=== PATIENT | female | born 1955 | race Caucasian/White ===

== ENCOUNTER 2020-05-18 12:11 | Outpatient (REF) | payer MEDICAID, SELFPAY ==
--- NOTE | 2020-05-18 | MM_ITS ---
EXAMINATION: MM DIAGNOSTIC DIGITAL BREAST TOMOSYNTHESIS, BILATERAL CLINICAL INFORMATION: Probable benign nodular density anterior medial left breast for follow-up. Due for yearly. The lifetime risk of breast cancer based on the Tyrer-Cuzick Model is 4%. COMPARISON: Mammography: 04/03/2019, 09/13/2018, 03/09/2018, 07/06/2016 TECHNIQUE: Digital breast tomosynthesis is performed in both the craniocaudal and mediolateral oblique views along with computer-aided detection (CAD). Synthesized 2D images are generated from the tomosynthesis. FINDINGS: There are scattered areas of fibroglandular density (ACR BI-RADS breast composition Category b). There are no significant masses, abnormal calcifications, or other abnormalities. Small circumscribed nodule anterior medial left breast on CC view is stable since initial visualization 03/09/2018. It is now considered benign. There is no developing density or interval architectural abnormality. Benign heavily calcified nodule posterior upper left breast is stable. Results are provided to the patient at time of visit by the technologist. MM/MM tomosynthesis diagnostic BI IMPRESSION: 1. No mammographic evidence of malignancy. 2. Small nodule anterior medial left breast stable since 2018, now considered benign. ASSESSMENT: BI-RADS 2: Benign RECOMMENDATION: Routine annual mammography screening. This patient's information was entered into a reminder system with a target due date for their next mammogram.
== END 2020-05-18 12:12 | disposition home or self-care (01) ==
LOC: HO.MAMMO 12:11
PROVIDERS: PCP Internal Medicine; Visit Provider Internal Medicine
DX: Z12.31 Encounter for screening mammogram for malignant neoplasm of breast (principal); N63.20 Unspecified lump in the left breast, unspecified quadrant
CPT/HCPCS: 77062; 77066

== ENCOUNTER 2020-06-09 17:53 | Emergency (ER) | payer MEDICAID, SELFPAY ==
[2020-06-09 18:03] VITALS: BP 142/55; PULSE 104; RESP 16; TEMP 36.1; O2SAT 98; BMI 36.0
--- NOTE | 2020-06-09 18:36 | XR_ITS ---
EXAMINATION: XR SHOULDER, RIGHT CLINICAL INFORMATION: Shoulder pain COMPARISON: None TECHNIQUE: AP external rotation, Grashey, scapular Y, and axillary views of the right shoulder. FINDINGS: Visualized portion of the proximal right humerus demonstrate no fracture. Humeral head demonstrates good articulation with the glenoid fossa. There is a prominent osteophyte along the inferolateral right humeral head. Calcifications adjacent to the greater tuberosity suggest calcific tendinitis. There are mild degenerative changes of the right acromioclavicular joint. Visualized right-sided ribs and lung parenchyma are unremarkable. XR/XR shoulder RT min 2V IMPRESSION: Degenerative changes of the right shoulder with calcific tendinitis. No fracture or dislocation.
--- NOTE | 2020-06-09 18:48 | ED_ITS ---
HPI - Extremity Problem General Chief complaint: Extremity Problem Stated complaint: Arm pain No injury Time Seen by Provider: 06/09/20 18:36 Source: patient Mode of arrival: ambulatory Limitations: language barrier History of Present Illness HPI Narrative: 65 y/o female with history of HTN, DM, asthma, hx DVT, asthma, depression, peripheral neuropathy, hx bilateral carpal tunnel release in the past presenting with 1 month of RUE pain. She states it starts in her right lateral shoulder and upper arm and radiates down to her elbow and hand. She is right hand dominant. She sleeps on her right side and has been unable to sleep well due to the pain. She has been taking Tylenol without improvement. She denies injury or trauma. She denies weakness but admits to limited ROM due to pain. MD Complaint: extremity pain Onset (ago): week(s) (4-6) Pain Consistency: constant Location: right and upper extremity Severity scale (1-10): 8 Quality: burning and aching Radiation: distal Relieving factors: medication Exacerbating factors: range of motion and palpation Associated symptoms: denies other symptoms Related Data Previous Rx's Medication Instructions Recorded oxycodone 5 mg PO Q4H PRN #10 tab 06/09/20 prednisone 40 mg PO DAILY #10 tab 06/09/20 Allergies Allergy/AdvReac Type Severity Reaction Status Date / Time levofloxacin [From LEVAQUIN] Allergy Mild unknown Unverified 03/12/20 19:12 Sulfa (Sulfonamide Allergy Unknown UNKNOWN Unverified 03/12/20 19:12 Antibiotics) [SULFA (SULFONAMIDE ANTIBIOTICS)] sulfamethoxazole Allergy Unknown UNKNOWN Unverified 03/12/20 19:12 [From SEPTRA] trimethoprim [From SEPTRA] Allergy Unknown UNKNOWN Unverified 03/12/20 19:12 Review of Systems Review of Systems: Constitutional: No Fever, No Chills Cardiovascular: No Chest Pain, No SOB, No Orthopnea, No Edema Respiratory: No Cough, No Sputum, Gastrointestinal: No Nausea, No Vomiting Musculoskeletal: + joint pain, No Myalgias Skin: No Skin Lesions, No rash Neuro: No Weakness, No Numbness Heme/Lymph: No Bruising, No Lymphadenopathy PMFSH Past Medical History Attestation statement: The following information was validated with the patient. Medical History Asthma Diabetes HTN (hypertension) Neuropathy Social History Social History Advance Directives: No Advance Directives Information Provided: Yes Physical Exam Vital Signs: Vital Signs: Last Vital Signs Temp 98 F 06/09/20 19:32 Pulse 104 H 06/09/20 19:32 Resp 16 06/09/20 19:32 BP 138/66 06/09/20 19:32 Pulse Ox 100 06/09/20 19:32 Body Mass Index 36.0 Appearance: Alert. Oriented X3. No acute distress. HEENT: normal inspection CVS: Normal heart rate and rhythm. Pulses normal. Respiratory: No respiratory distress. Skin: Skin warm and dry. Normal skin color. Normal skin turgor. No rashes. Extremities: right proximal humerus tenderness with limited active shoulder ROM due to pain, passive ROM possible but reports pain. normal hand grasp, limited shoulder abduction due to pain. no deformity, no skin changes or swelling, normal radial pulse, warm and well perfused. No scapular tenderness. Neuro: Oriented X 3. No motor deficit. No sensory deficit. Course Course Course Narrative: 65 y/o female with non-traumatic right shoulder pain x4-6 weeks. Feels different from her usual LE neuropathy. XR pending. Suspect tendonitis. Reevaluation(s) Reevaluation #1: XR shows degenerative changes of the right shoulder with calcific tendonitis. No fx or dislocation. Will treat with sling for immobilization, prednisone and pain meds PRN. Refer to Ortho. Patient agrees with plan. Stable for d/c. Critical Care Time Critical Care Time Critical Care Time: No Discharge Plan Discharge Clinical Impression: Calcific tendonitis Patient Disposition: Home, Self-Care Instructions: Calcific Tendinitis (ED) Additional Instructions: X-ray today showed calcific tendonitis. Treatment consists of rest and anti-inflammatory mediations. Recommend resting your arm in a sling. Take the prescribed steroids for inflammation - take the 1st dose tomorrow because you were given a dose here in the ER. Take the prescribed pain medications as needed. Do not drive after taking this medication. Follow up with Orthopedics if no improvement in pain. Follow up with your doctor this week. If pain worsens or changes come back to the ER for further evaluation. Prescriptions: New oxycodone 5 mg tablet 5 mg PO Q4H PRN (Reason: pain) Qty: 10 RF: 0 prednisone 20 mg tablet 40 mg PO DAILY Qty: 10 RF: 0 Referrals: Luis Wray MD [Physician] - 3 days (calcific tendonitis) Interventions: ED Discharge Assessment Last Done: 06/09/20 20:27 Discharge Date/Time: 06/09/20 20:30 Print Language: Albanian
[2020-06-09] MEDS: Acetaminophen 325 MG TABLET 975 MG PO (19:16)
[2020-06-09 19:32] VITALS: BP 138/66; PULSE 104; RESP 16; TEMP 36.6; O2SAT 100
[2020-06-09] MEDS: predniSONE 20 MG TABLET 40 MG PO (20:22)
[2020-06-09] MEDS: oxyCODONE HCl Immed Release 5 MG TABLET PO (20:23)
[2020-06-09] MEDS: Lidocaine 4 % Patch ADH..PATCH 1 PATCH TRANSDERMA (20:23)
== END 2020-06-09 20:30 | disposition home or self-care (01) ==
PROVIDERS: Emergency Provider Internal Medicine
DX: M75.31 Calcific tendinitis of right shoulder (principal); M25.511 Pain in right shoulder; I10 Essential (primary) hypertension; Z79.899 Other long term (current) drug therapy
CPT/HCPCS: 73030; 99283

== ENCOUNTER 2020-12-29 15:24 | Emergency (ER) | payer MEDICAID, SELFPAY ==
--- NOTE | 2020-12-29 15:29 | ECG_ITS ---
Test Reason : CHEST PAIN Blood Pressure : / mmHG Vent. Rate : 081 BPM Atrial Rate : 081 BPM P-R Int : 128 ms QRS Dur : 088 ms QT Int : 388 ms P-R-T Axes : 049 007 062 degrees QTc Int : 450 ms Normal sinus rhythm Normal ECG When compared with ECG of 06-JAN-2020 12:20, No significant change was found Referred By: Generic ED Physician Electronically Signed By:DARWIN VALDEZ
== END 2020-12-29 18:02 | disposition left against medical advice (07) ==
PROVIDERS: Emergency Provider Emergency Medicine
DX: R00.2 Palpitations (principal)
CPT/HCPCS: 93005; 99281; 99283

== ENCOUNTER 2021-02-03 11:08 | Outpatient (REF) | payer MEDICAID, SELFPAY ==
--- NOTE | ~2021-02-03 | XR_ITS ---
EXAMINATION: XR SHOULDER, LEFT CLINICAL INFORMATION: Left shoulder pain. Concern for frozen shoulder. COMPARISON: Subsequent left shoulder radiographs dated 02/04/2021. TECHNIQUE: AP external rotation, Grashey, scapular Y, and axillary views of the left shoulder. FINDINGS: Small acromioclavicular and glenohumeral marginal osteophytes. Small lateral subacromial spurs. No lytic or blastic osseous lesion. No fracture or dislocation. XR/XR shoulder LT min 2V IMPRESSION: Mild acromioclavicular and glenohumeral osteoarthritis. Lateral subacromial spurring.
== END 2021-02-03 11:09 | disposition home or self-care (01) ==
LOC: HO.XRAY 11:08
PROVIDERS: PCP Nurse Practitioner; Visit Provider Nurse Practitioner
DX: M25.512 Pain in left shoulder (principal)
CPT/HCPCS: 73030

== ENCOUNTER 2021-02-04 12:25 | Emergency (ER) | payer MEDICAID, SELFPAY ==
--- NOTE | ~2021-02-04 | CT_ITS ---
EXAMINATION: CT SOFT TISSUE NECK WITH CONTRAST CLINICAL INFORMATION: Neck pain. Rule out abscess or mastoiditis. COMPARISON: None TECHNIQUE: Following the intravenous administration of 85 mL of Omnipaque 370 contrast, helical imaging was performed in the axial plane with generation of coronal and sagittal reformatted images. This CT examination was performed using dose optimization techniques as appropriate, variously including the following: *Automated exposure control *Adjustment of mA and/or kV according to patient size (this includes techniques or standardized protocols for targeted exams where dose is matched to indication/reason for exam; i.e. extremities or head) *Use of iterative reconstruction technique DLP: 302 mGy-cm FINDINGS: No contour abnormality or pathologic enhancement is seen within the oral cavity, pharyngeal mucosal space, or larynx. No pathologically enlarged cervical lymph nodes are visible. The carotid sheath vasculature opacifies normally with atherosclerotic wall calcifications at left bifurcation. No soft tissue fluid collection seen. The thyroid gland is normal. The airway is normally maintained. The parotid and submandibular glands appear normal. Multilevel cervical spondylosis and facet arthropathy visible. No periapical lucencies seen in the dentition. The visualized orbits are relatively normal with evidence of prior lens extractions bilaterally. The imaged mediastinum is normal. The visualized portions of the lungs demonstrate mild scattered subsegmental atelectatic changes. Linear scarring visible in the left lung apex. The paranasal sinuses, middle ear cavities, and mastoid air cells are aerated. The imaged portions of the brain demonstrate no acute abnormality. CT/CT soft tissue neck w con IMPRESSION: No soft tissue fluid collections or adenopathy. Well aerated middle ear cavities and mastoid air cells. No acute findings.
--- NOTE | ~2021-02-04 | XR_ITS ---
EXAMINATION: XR SHOULDER, LEFT CLINICAL INFORMATION: Left shoulder pain. COMPARISON: Left shoulder radiographs dated 02/03/2021. TECHNIQUE: AP external rotation, Grashey, scapular Y, and axillary views of the left shoulder. FINDINGS: No acute fracture or dislocation. Mild acromioclavicular and glenohumeral joint space narrowing with small marginal osteophytes. Small lateral subacromial spurring. No osseous erosion. No fracture or dislocation. XR/XR shoulder LT min 2V IMPRESSION: Mild acromioclavicular and glenohumeral osteoarthritis. Small lateral subacromial spurs.
[2021-02-04 12:59] VITALS: BP 140/75; PULSE 86; RESP 18; TEMP 37.1; O2SAT 97; BMI 36.6
--- NOTE | 2021-02-04 13:05 | PC.NURSE ---
Pt declined motrin/ tylenol in triage
--- NOTE | 2021-02-04 15:27 | ED_ITS ---
HPI - General Adult General Chief complaint: Extremity Problem Stated complaint: shoulder pain and arm swelling Time Seen by Provider: 02/04/21 15:27 History of Present Illness HPI narrative: 65-year-old female with history of hypertension, diabetes, asthma, DVT, depression, peripheral neuropathy, bilateral carpal tunnel syndrome is here today for complaints of left shoulder, neck, ear pain. Patient denies any injury. She reports that she woke up about a week ago with severe pain. Patient went to PCPs office couple days ago and received IM injection. Medication has not helped her. Patient denies any fevers or chills. Denies any neurological symptoms. Denies rhinitis, dizziness or headache. Related Data Previous Rx's Medication Instructions Recorded oxycodone 5 mg tablet 5 mg PO Q4H PRN #10 tab 06/09/20 prednisone 20 mg tablet 40 mg PO DAILY #10 tab 06/09/20 amoxicillin 875 mg-potassium 1 tab PO BID 7 Days #14 tab 02/04/21 clavulanate 125 mg tablet (Augmentin) cyclobenzaprine 10 mg tablet 10 mg PO BID PRN #10 tab 02/04/21 [id number] 3.5 4 drp OTIC (EAR) LEFT Q8H 10 Days 02/04/21 mg-10,000 unit/mL-1 % ear #10 ml drops,susp oxycodone 5 mg tablet 5 mg PO Q8H PRN #5 tab 02/04/21 Allergies Allergy/AdvReac Type Severity Reaction Status Date / Time levofloxacin [From LEVAQUIN] Allergy Mild unknown Verified 02/04/21 19:25 Sulfa (Sulfonamide Allergy Unknown UNKNOWN Verified 02/04/21 19:25 Antibiotics) [SULFA (SULFONAMIDE ANTIBIOTICS)] sulfamethoxazole Allergy Unknown UNKNOWN Verified 02/04/21 19:25 [From ] trimethoprim [From ] Allergy Unknown UNKNOWN Verified 02/04/21 19:25 Review of Systems Review of Systems: Constitutional : No Weight loss, No Fever, No Chills, No Night Sweats, No Fatigue, No Malaise ENT/Mouth : No Hearing loss, L Ear Pain, No Nasal Congestion, No Sinus Pain, No Hoarseness, No sore throat, No Rhinorrhea, No Swallowing Difficulty, left neck pain and swelling Eyes: No Eye Pain, No Swelling, No Redness, No Foreign Body, No Discharge, No Vision Changes Cardiovascular : No Chest Pain, No SOB, No Dyspnea on Exertion, No Orthopnea, No Edema, No Palpitations Respiratory : No Cough, No Sputum, No Wheezing, No Smoke Exposure, No Dyspnea Gastrointestinal : No Nausea, No Vomiting, No Diarrhea, No Constipation, No abdominal Pain, No Hematochezia, No Melena Genitourinary : no irregular bleeding, No Dysuria, No Urinary Frequency, No Hematuria, No Urinary Incontinence, No Urgency, No Flank Pain, No Urinary Flow Changes, No Hesitancy Musculoskeletal : joint pain, left shoulder pain, Myalgias, No Joint Swelling Skin : No Skin Lesions, No rash Neuro : No Weakness, No Numbness, No Paresthesias, No Loss of Consciousness, No Dizziness, No Headache Psych : No Anxiety/Panic, No Depression, No SI/HI/AH/VH, No Social Issues, Heme/Lymph: No Bruising, No Bleeding,No Lymphadenopathy Endocrine : No Polyuria, No Polydipsia, No Temperature Intolerance Yes all other systems are reviewed and are negative [facility] Past Medical History Medical History Asthma Diabetes HTN (hypertension) Neuropathy Social History Social History Advance Directives: No Advance Directives Information Provided: Yes Patient : No Physical Exam Vital Signs: Vital Signs: Last Vital Signs Temp 98.5 F 02/04/21 18:11 Pulse 81 02/04/21 19:22 Resp 20 02/04/21 19:23 BP 135/75 02/04/21 19:22 Pulse Ox 95 02/04/21 19:22 Body Mass Index 36.6 Const: General: cooperative Orientation/consciousness: patient oriented x3 Limitations: no limitations HENMT: Head: Yes normal to inspection Ears: hearing grossly normal bilaterally, external ears abnormal (Left ear otitis externa), TM's normal bilaterally, mastoid abnormal (Tenderness) and other General nose exam: Normal external nose present Face and sinus: Yes normal facial exam Mouth: Normal oral and palatal mucosa present Throat: Yes posterior oropharynx normal Eyes: General: appearance normal, both eyes and all related structures Eyelids: Yes eyelids normal Conjunctivae: conjunctivae normal Sclerae: sclerae normal Pupils: Equal, round and reactive pupils present Neck: Neck: Yes normal visual inspection, No full ROM, Yes no lymphadenopathy, Yes trachea midline, Yes supple and Yes other (Left neck tenderness and swelling) Thyroid: Thyroid normal Chest: Chest palpation & inspection: normal inspection of the chest Resp: Effort & Inspection: normal respiratory effort and able to speak in complete sentences Auscultation: clear to auscultation bilaterally Cardio: Rate: regular rate Rhythm: regular rhythm Heart sounds: S1 normal heart sound present, S2 normal heart sound present, no gallops, no m urmurs and no rubs Peripheral pulses: Peripheral pulses 2+ throughout GI: Inspection: Yes normal to inspection and No distended Palpation (GI): No hepatosplenomegaly present and No Rebound tenderness present Percussion: Yes normal to percussion Auscultation: normal bowel sounds Back/Spine/Pelvis: Cervical Spine: cervical ROM normal and No cervical muscular tenderness Thoracic/Lumbar Spine: thoracic and lumbar spine normal to inspection Skin: General skin exam: no rashes or lesions noted, elasticity normal and turgor normal Neuro: General: patient oriented x3 Cranial nerves: Yes Equal, round and reactive pupils present Extrem: General: Yes normal to inspection, Yes full ROM and Yes capillary refill normal Psych: Appearance: grossly normal Mental Status: mental status grossly no rmal Speech and movement: Normal speech and movement present Affect: normal affect Attitude: cooperative Thought process: Normal thought process present Insight: Good insight present (Psych) Course Course Course Narrative: 65-year-old female with past medical history of diabetes, hypertension, asthma, DVT, depression, peripheral neuropathy is here today for complaints of left shoulder neck and ear pain. Tenderness to deltoid, trapezius and sternocleidomastoid muscles, otitis externa. Left side of her neck swollen and very tender. Mastoid area tender as well. We will order CT scan soft tissue of the neck. Will do labs to check for kidney function patient is diab etic. Will medicate her with oxycodone and cyclobenzaprine. Reevaluation(s) Reevaluation #1: Patient continues to have left shoulder, neck and ear pain. Patient reports that pain unchanged. Awaiting CT scan results, will order shoulder x-ray. Reevaluation #2: Will order Augmentin and Cortisporin. Patient is diabetic and she has significant redness, pain and pruritus Reevaluation #3: CT scan negative for any acute process. Left shoulder x-ray show osteoarthritis. I will be sending patient home with pain management and antibiotics for otitis externa. Patient is to follow-up with her PCP in 2-3 days. Both patient and her her daughter understand instructions and agreeable to plan of care. They were given the opportunity to ask questions and all questions answered. Medical Decision Making Lab Data Result diagrams: 02/04/21 17:55 Labs: Lab Results 02/04/21 Range/Units 17:55 Sodium 142 (135-145) mmol/L Potassium 4.2 (3.3-5.1) mmol/L Chloride 104 (96-108) mmol/L Carbon Dioxide 23 (22-29) mmol/L Anion Gap 19 (12-20) BUN 23 H (9-16) mg/dL Creatinine 1.00 (0.5-1.4) mg/dL Estim Creat Clear Calc 62.6 Estimated GFR 56 Random Glucose 107 (60-115) mg/dL Calcium 10.2 (8.4-10.2) mg/dL Imaging Data Shoulder x-ray: Radiologist's impression: FINDINGS: No acute fracture or dislocation. Mild acromioclavicular and glenohumeral joint space narrowing with small marginal osteophytes. Small lateral subacromial spurring. No osseous erosion. No fracture or dislocation.? CT scan soft neck tissue: Radiologist's impression: FINDINGS: No contour abnormality or pathologic enhancement is seen within the oral cavity, pharyngeal mucosal space, or larynx. No pathologically enlarged cervical lymph nodes are visible. The carotid sheath vasculature opacifies normally with atherosclerotic wall calcifications at left bifurcation. No soft tissue fluid collection seen. The thyroid gland is normal. The airway is normally maintained. The parotid and submandibular glands appear normal. Multilevel cervical spondylosis and facet arthropathy visible. No periapical lucencies seen in the dentition. The visualized orbits are relatively normal with evidence of prior lens extractions bilaterally. The imaged mediastinum is normal. The visualized portions of the lungs demonstrate mild scattered subsegmental atelectatic changes. Linear scarring visible in the left lung apex. The paranasal sinuses, middle ear cavities, and mastoid air cells are aerated. The imaged portions of the brain demonstrate no acute abnormality. Discharge Plan Discharge Clinical Impression: Muscle spasm of left shoulder area Osteoarthritis Qualifiers: Osteoarthritis location: shoulder Osteoarthritis type: unspecified Laterality: left Qualified Code(s): M19.012 - Primary osteoarthritis, left shoulder Otitis externa Qualifiers: Otitis externa type: unspecified type Chronicity: acute Laterality: left Qualified Code(s): H60.502 - Unspecified acute noninfective otitis externa, left ear Patient Disposition: Home, Self-Care Instructions: Otitis Externa (ED), Osteoarthritis (ED), Muscle Spasm (ED) Additional Instructions: Lo vieron aqu? hoy por marks dolor en el hombro tevin y en el ashley. Marks radiograf?a mostr? que tiene osteoartritis. Marks tomograf?a computarizada no muestra ninguna anomal?a. Usted tiene marks infecci?n y la necesidad de kenan gotas para los o?dos y antibi?ticos. Chrissy un seguimiento con marks atenci?n primaria en 2-3 d?as. Es posible que necesite brandon terapia para marks hombro. Por favor devuelva al departamento de emergencias si lor s?ntomas empeoran o si experimenta alg?n s?ntoma preocupante adicional Prescriptions: New cyclobenzaprine 10 mg tablet 10 mg PO BID PRN (Reason: muscle spasm) Qty: 10 RF: 0 amoxicillin-pot clavulanate [Augmentin] 875-125 mg tablet 1 tab PO BID 7 Days Qty: 14 RF: 0 [id number]-[id number]-[id number] 3.5-10,000-1 mg/mL-unit/mL-% drops,suspension 4 drp otic (ear) left Q8H 10 Days Qty: 10 RF: 0 oxycodone 5 mg tablet 5 mg PO Q8H PRN (Reason: pain) Qty: 5 RF: 0 No Action oxycodone 5 mg tablet 5 mg PO Q4H PRN (Reason: pain) Qty: 10 RF: 0 prednisone 20 mg tablet 40 mg PO DAILY Qty: 10 RF: 0
[2021-02-04] MEDS: oxyCODONE HCl Immed Release 5 MG TABLET PO (16:24)
[2021-02-04] MEDS: Cyclobenzaprine HCl 5 MG TABLET PO (16:24)
--- NOTE | 2021-02-04 16:31 | PC.NURSE ---
PT WAS MEDICATED FOR PAIN AND IV ACCESS WAS GAINED FOR CT SCAN
[2021-02-04 18:11] VITALS: BP 142/90; PULSE 84; RESP 18; TEMP 36.9; O2SAT 97
[2021-02-04 18:22] LABS: Anion Gap 19 (12-20); Blood Urea Nitrogen 23 mg/dL (9-16); Calcium 10.2 mg/dL (8.4-10.2); Carbon Dioxide 23 mmol/L (22-29); Chloride 104 mmol/L (96-108); Creatinine Clr Calc Pharmacy 62.6; Estimated Glomerular Filt Rate 56; Glucose Random 107 mg/dL (60-115); Potassium 4.2 mmol/L (3.3-5.1); Sodium 142 mmol/L (135-145)
[2021-02-04] MEDS: iohexoL 350 MG/ML 100 ML INFUS..BTL 85 ML IV (18:43)
[2021-02-04 19:22] VITALS: BP 135/75; PULSE 81; RESP 20; O2SAT 95
[2021-02-04 19:23] VITALS: RESP 20
[2021-02-04] MEDS: Amoxicillin/Potassium Clav 875 MG TABLET PO (19:24)
[2021-02-04] MEDS: NeoMYCIN/Polymyxin/HC Otic Sol BOTTLE 4 DROP EAR-LEFT (19:24)
== END 2021-02-04 20:18 | disposition home or self-care (01) ==
PROVIDERS: Nurse Practitioner Family; Emergency Provider Emergency Medicine
DX: M62.838 Other muscle spasm (principal); M19.012 Primary osteoarthritis, left shoulder; H60.502 Unspecified acute noninfective otitis externa, left ear; M25.512 Pain in left shoulder; E11.9 Type 2 diabetes mellitus without complications; I10 Essential (primary) hypertension
CPT/HCPCS: 36415; 70491; 73030; 80048; 99284; Q9967

== ENCOUNTER 2021-10-16 11:26 | Emergency (ER) | payer MEDICAID, SELFPAY ==
--- NOTE | ~2021-10-16 | XR_ITS ---
EXAMINATION: XR KNEE, LEFT CLINICAL INFORMATION: Knee pain COMPARISON: None TECHNIQUE: Four views of the left knee. FINDINGS: No fracture or joint effusion. Alignment is anatomic. Joint spaces are well maintained. No abnormal soft tissue calcification. Patellar insertion enthesopathy. XR/XR knee LT 3V IMPRESSION: No evidence of acute osseous abnormality.
[2021-10-16 11:32] VITALS: BP 151/83; PULSE 91; RESP 20; TEMP 36.3; O2SAT 98; BMI 35.6
[2021-10-16 11:51] VITALS: BMI 35.9
[2021-10-16] MEDS: oxyCODONE HCl Immed Release 5 MG TABLET PO (12:59)
[2021-10-16] MEDS: Ketorolac Tromethamine 30 MG/ML VIAL IM (13:00)
--- NOTE | 2021-10-16 14:40 | ED.EXTPRO ---
HPI - Extremity Problem General Chief complaint: Extremity Problem Stated complaint: Hip pain/Leg pain Time Seen by Provider: 10/16/21 12:04 Source: patient Mode of arrival: ambulatory History of Present Illness HPI Narrative: 66-year-old female with a past medical history of asthma, diabetes, hypertension, neuropathy, presenting to the ED complaining left hip pain radiating down LLE x1 week. Denies known injury/trauma or fall, numbness, tingling, weakness, urinary incontinence/retention. Taking Tylenol without relief MD Complaint: extremity pain Onset (ago): week(s) Pain Consistency: constant Related Data Previous Rx's Medication Instructions Recorded oxycodone 5 mg tablet 5 mg PO Q4H PRN #10 tab 06/09/20 prednisone 20 mg tablet 40 mg PO DAILY #10 tab 06/09/20 amoxicillin 875 mg-potassium 1 tab PO BID 7 Days #14 tab 02/04/21 clavulanate 125 mg tablet (Augmentin) cyclobenzaprine 10 mg tablet 10 mg PO BID PRN #10 tab 02/04/21 iamytaff-zxrgakgyb-nlodgzptw 3.5 4 drp OTIC (EAR) LEFT Q8H 10 Days 02/04/21 mg-10,000 unit/mL-1 % ear #10 ml drops,susp oxycodone 5 mg tablet 5 mg PO Q8H PRN #5 tab 02/04/21 acetaminophen 500 mg tablet 500 mg PO Q6H PRN #20 tab 10/16/21 (Tylenol Extra Strength) cyclobenzaprine 5 mg tablet 5 mg PO Q8H PRN 5 Days #14 tab 10/16/21 lidocaine 5 % topical patch 1 patch TOPICAL DAILY PRN #30 ea 10/16/21 (Lidoderm) MDD remove after 12 hours naproxen 500 mg tablet 500 mg PO BID PRN 10 Days #20 tab 10/16/21 Allergies Allergy/AdvReac Type Severity Reaction Status Date / Time levofloxacin [From LEVAQUIN] Allergy Mild unknown Verified 02/04/21 19:25 Sulfa (Sulfonamide Allergy Unknown UNKNOWN Verified 02/04/21 19:25 Antibiotics) [SULFA (SULFONAMIDE ANTIBIOTICS)] sulfamethoxazole Allergy Unknown UNKNOWN Verified 02/04/21 19:25 [From ] trimethoprim [From FEBRA] Allergy Unknown UNKNOWN Verified 02/04/21 19:25 Review of Systems Review of Systems: Constitutional: No Fever, No Chills ENT/Mouth: No Ear Pain, No Nasal Congestion, No sore throat, No Rhinorrhea, No Swallowing Difficulty Cardiovascular: No Chest Pain, No SOB Respiratory: No Cough, No Sputum Gastrointestinal: No Nausea, No Vomiting, No Diarrhea, No Constipation, No Abdominal pain Genitourinary:, No Dysuria, No Hematuria, No Urinary Incontinence/retention No Flank Pain Musculoskeletal: + joint pain, No Myalgias, No Joint Swelling Skin: No Skin Lesions, No rash Neuro: No Weakness, No Numbness, No Paresthesias Yes all other systems are reviewed and are negative Neurologic: Denies Sensory deficit (Neuro) [facility] Past Medical History Attestation statement: The following information was validated with the patient. Medical History Asthma Diabetes HTN (hypertension) Neuropathy Social History Social History Advance Directives: No Advance Directives Information Provided: No Physical Exam Vital Signs: Vital Signs: Last Vital Signs Temp 97.3 F 10/16/21 11:32 Pulse 91 10/16/21 11:32 Resp 20 10/16/21 11:32 BP 151/83 H 10/16/21 11:32 Pulse Ox 98 10/16/21 11:32 BMI result Body Mass Index 35.9 Const: General: cooperative, healthy appearing, no acute distress, alert and awake Orientation/consciousness: patient oriented x3 Limitations: no limitations HEENT: Head: Yes normal to inspection and Yes atraumatic Ears: hearing grossly normal bilaterally General nose exam: Normal external nose present Face and sinus: Yes normal facial exam Eyes: General: appearance normal, both eyes and all related structures EOM: EOMs intact bilaterally Neck: Other: No midline cervical spine tenderness Neck: Yes normal visual inspection and Yes no meningeal signs Resp: Effort & Inspection: normal respiratory effort and no respiratory distress Cardio: Rate: regular rate Heart sounds: S1 normal heart sound present and S2 normal heart sound present Peripheral pulses: radial pulses present Back/Spine/Pelvis: Other: No midline thoracic/lumbar spinous tenderness/step-off or deformity. + left buttock tenderness to palpation Thoracic/Lumbar Spine: thoracic and lumbar spine normal to inspection Skin: Rashes: no rashes Wounds: no wounds Neuro: Other: No saddle anesthesia. Strength intact throughout General: patient oriented x3, tone normal, moves all extremities and no meningeal signs Motor exam (neuro): 5/5 motor strength present throughout Sensory Exam: No Sensory deficit (Neuro) Extrem: Other: Left hip nontender, range of motion intact. Left knee with diffuse tenderness, limited flexion secondary to pain. Neurovascular intact distally. No appreciable deformity. General: Yes normal to inspection Course Course Course Narrative: XR knee LT 3V IMPRESSION: No evidence of acute osseous abnormality. >> Jason wrap applied for comfort and stability. Results discussed with patient with diplomatic interpreter/translator including worrisome signs and symptoms and strict return precautions MDM - Extremity (Nontraumatic) MDM Narrative Medical decision making narrative: 66-year-old female with a past medical history of asthma, diabetes, hypertension, neuropathy, presenting to the ED complaining left hip pain radiating down LLE x1 week. On exam vital signs stable, NAD/nontoxic, no midline spinous tenderness throughout, no red flag symptoms. Left knee with tenderness to palpation and decreased ROM secondary to pain. Concern for sciatica vs MSK pain/muscle spasming vs arthritis. Low concern for cauda quinine/cord compression or fracture Plan: Knee x-ray, pain control Medical Records Attestation: I reviewed the patient's medical records. Lab Data Attestation: I reviewed the patient's lab results. Discharge Plan Discharge Clinical Impression: Sciatic leg pain Patient Disposition: Home, Self-Care Instructions: Acute Low Back Pain (ED) Additional Instructions: Your x-rays unremarkable Your pain is likely musculoskeletal Flexeril is a muscle relaxer, take at night as it makes you drowsy, do not drive, drink alcohol, or operate machinery while taking it Naproxen as an anti-inflammatory / pain medication, take with food Lidoderm patches are numbing patches, apply to painful area In addition take Tylenol at home If symptoms persist or worsen, pain becomes unbearable, you developed urinary retention or incontinence, or weakness return to the ED Tus radiograf?as sin complicaciones Es probable que marks dolor sea musculoesquel?hayden Flexeril es un relajante muscular, t?charles por la noche ya que te adormece, no conduzcas, bebas alcohol ni operes maquinaria mientras lo jamin. Naproxeno sandra medicamento antiinflamatorio/analg?sico, t?walker con alimentos Los parches de Lidoderm son parches anest?sicos, se aplican en el ?aj dolorida Adem?s rhina Tylenol en casa Si los s?ntomas persisten o empeoran, el dolor se vuelve insoportable, desarroll? retenci?n urinaria o incontinencia, o debilidad, regrese al servicio de urgencias. Prescriptions: New cyclobenzaprine 5 mg tablet 5 mg PO Q8H PRN (Reason: pain (scale score 7-10)) 5 Days Qty: 14 0RF acetaminophen [Tylenol Extra Strength] 500 mg tablet 500 mg PO Q6H PRN (Reason: pain or fever) Qty: 20 0RF lidocaine [Lidoderm] 5 % adhesive patch,medicated 1 patch topical DAILY MDD remove after 12 hours PRN (Reason: pain) Qty: 30 0RF Rx Instructions: leave on most painful area for up to 12 hrs naproxen 500 mg tablet 500 mg PO BID PRN (Reason: pain) 10 Days Qty: 20 0RF No Action oxycodone 5 mg tablet 5 mg PO Q4H PRN (Reason: pain) Qty: 10 0RF Rx Instructions: for 3 days prednisone 20 mg tablet 40 mg PO DAILY Qty: 10 0RF cyclobenzaprine 10 mg tablet 10 mg PO BID PRN (Reason: muscle spasm) Qty: 10 0RF amoxicillin-pot clavulanate [Augmentin] 875-125 mg tablet 1 tab PO BID 7 Days Qty: 14 0RF pgyvuffl-rrowrfclb-PU 3.5-10,000-1 mg/mL-unit/mL-% drops,suspension 4 drp otic (ear) left Q8H 10 Days Qty: 10 0RF oxycodone 5 mg tablet 5 mg PO Q8H PRN (Reason: pain) Qty: 5 0RF Rx Instructions: Patient may request fewer tablets than prescribed Referrals: Annabelle Aviles [Primary Care Provider] - 1 week Zelda Ellis PA-C [Physician [employer]] - 1 week (as needed) Print Language: Moldovan
[2021-10-16 15:04] VITALS: BP 119/59; PULSE 71; RESP 16; TEMP 36.5; O2SAT 95
== END 2021-10-16 15:05 | disposition home or self-care (01) ==
PROVIDERS: Emergency Provider Emergency Medicine; PCP Nurse Practitioner
DX: M54.42 Lumbago with sciatica, left side (principal); M25.552 Pain in left hip; M79.605 Pain in left leg; E11.9 Type 2 diabetes mellitus without complications; I10 Essential (primary) hypertension; Z79.899 Other long term (current) drug therapy
CPT/HCPCS: 73562; 96372; 99284; J1885

== ENCOUNTER 2022-01-09 21:38 | Emergency (ER) | payer MEDICAID, SELFPAY ==
--- NOTE | ~2022-01-09 | XR_ITS ---
EXAMINATION: XR KNEE, LEFT CLINICAL INFORMATION: Fall. COMPARISON: Radiograph of left knee 10/16/2021. TECHNIQUE: Four views of the left knee. FINDINGS: No acute fracture or malalignment. Mild joint space narrowing and subcortical sclerosis of the medial compartment. Mild spurring of the superior pole of the patella. No erosions or chondrocalcinosis. No joint effusion. Vascular calcifications. XR/XR knee LT 4V IMPRESSION: 1. No acute fractures or malalignment. 2. Mild degenerative osteoarthritis of the medial and patellofemoral compartments.
--- NOTE | ~2022-01-09 | XR_ITS ---
EXAMINATION: XR ANKLE, LEFT CLINICAL INFORMATION: Fall. COMPARISON: Radiograph of the left ankle 01/07/2019. TECHNIQUE: AP, lateral, and mortise views of the left ankle. FINDINGS: No acute fracture or malalignment. The ankle mortise is maintained. Redemonstration of calcaneus spurring and distal achilles enthesopathy. Possible os naviculare. Soft tissue swelling around the ankle. XR/XR ankle LT min 3V IMPRESSION: No acute fracture or malalignment. Nonspecific soft tissue swelling around the ankle. Other chronic findings as above.
[2022-01-09 22:10] VITALS: BP 166/88; PULSE 94; RESP 18; TEMP 37.7; O2SAT 97; BMI 34.7
--- NOTE | 2022-01-10 00:23 | ED.FALL ---
HPI - Fall General Chief Complaint: Fall Stated Complaint: fall Time Seen by Provider: 01/10/22 00:23 Source: patient, family and interlocker Mode of arrival: wheelchair Limitations: no limitations History of Present Illness HPI Narrative: 66 yo female with hx of asthma, HTN, DM [place] and fell hitting L knee and ankle on the rocks, since then she has had pain in left leg making it hard to walk. No injuries anywhere else, no head injury or LOC. not on blood thinners complaint: fall Onset (ago): hour(s) (several ) Fall from: standing Fall witnessed: yes, by family Place fall occurred: other (by river) Loss of consciousness: none Prolonged down time: no Symptoms prior to fall: none Context: tripped/slipped Location of injury - extremities: left: knee and ankle Severity: moderate Quality: aching and throbbing Associated symptoms (after fall): other (difficulty walking) Related Data Previous Rx's Medication Instructions Recorded oxycodone 5 mg tablet 5 mg PO Q4H PRN pain #10 tabs 06/09/20 prednisone 20 mg tablet 40 mg PO DAILY #10 tabs 06/09/20 amoxicillin 875 mg-potassium 1 tab PO BID 7 days #14 tabs 02/04/21 clavulanate 125 mg tablet (Augmentin) cyclobenzaprine 10 mg tablet 10 mg PO BID PRN muscle spasm #10 02/04/21 tabs hrkcbsse-xezimuhzx-yixmgpdsv 3.5 4 drp otic (ear) left Q8H 10 days 02/04/21 mg-10,000 unit/mL-1 % ear #10 mL drops,susp oxycodone 5 mg tablet 5 mg PO Q8H PRN pain #5 tabs 02/04/21 acetaminophen 500 mg tablet 500 mg PO Q6H PRN pain or fever 10/16/21 (Tylenol Extra Strength) #20 tabs cyclobenzaprine 5 mg tablet 5 mg PO Q8H PRN pain (scale score 10/16/21 7-10) 5 days #14 tabs lidocaine 5 % topical patch 1 patch topical DAILY PRN pain #30 10/16/21 (Lidoderm) ea tramadol 50 mg tablet 50 mg PO Q8H PRN pain, severe 3 04/23/22 days #9 tabs cyclobenzaprine 10 mg tablet 10 mg PO TID PRN muscle spasm #14 01/10/22 tabs diclofenac sodium 1 % topical gel 2 g topical QID #100 grams 01/10/22 (Voltaren Arthritis Pain) hydrocodone 5 mg-acetaminophen 325 1 tab PO Q6H PRN pain #10 tabs 01/10/22 mg tablet lidocaine 4 % topical patch 1 patch topical DAILY PRN pain #10 01/10/22 ea Allergies Allergy/AdvReac Type Severity Reaction Status Date / Time levofloxacin [From LEVAQUIN] Allergy Mild unknown Verified 02/04/21 19:25 Sulfa (Sulfonamide Allergy Unknown UNKNOWN Verified 02/04/21 19:25 Antibiotics) [SULFA (SULFONAMIDE ANTIBIOTICS)] sulfamethoxazole Allergy Unknown UNKNOWN Verified 02/04/21 19:25 [From FEBRA] trimethoprim [From FEBRA] Allergy Unknown UNKNOWN Verified 02/04/21 19:25 Review of Systems Review of Systems: Constitutional : No Fever, No Chills ENT/Mouth : No Ear Pain, No Hoarseness, No sore throat Eyes: No Eye Pain, No Swelling, No Redness, No Foreign Body Cardiovascular : No Chest Pain, No SOB Respiratory : No Cough, No Dyspnea Gastrointestinal : No Nausea, No Vomiting, No Diarrhea, No abdominal Pain Genitourinary : No Dysuria, No Hematuria Musculoskeletal : positive joint pain, No Myalgias, pos Joint Swelling Skin : No Skin lacerations, No rash Neuro : No Weakness, No Numbness, No Loss of Consciousness, No Dizziness, No Headache Psych : No Anxiety/Panic, No Depression Heme/Lymph: no easy bruising, no Lymphadenopathy Endocrine : No Polyuria, No Polydipsia All other systems reviewed and are negative [facility] Past Medical History Attestation statement: The following information was validated with the patient. Medical History Asthma Diabetes HTN (hypertension) Neuropathy Social History Social History (Updated 01/10/22 @ 00:30 by Charley Ryan DO) Patient Tobacco Use Status: Never used Tobacco Physical Exam Vital Signs: Vital Signs: Last Vital Signs Temp 99.8 F 01/09/22 22:10 Pulse 94 01/09/22 22:10 Resp 18 01/09/22 22:10 BP 166/88 H 01/09/22 22:10 Pulse Ox 97 01/09/22 22:10 O2 Del Method 01/09/22 22:10 BMI result Body Mass Index 34.7 Appearance: Alert. Oriented X3. No acute distress. Eyes: Pupils equal, round and reactive to light. ENT: Pharynx normal. Atraumatic Neck: Normal inspection. Neck supple. CVS: Normal heart rate and rhythm. Pulses normal. Respiratory: No respiratory distress. Breath sounds normal. Abdomen: Soft and nontender. Back: nontender Skin: Skin warm and dry. Normal skin color. Normal skin turgor. Extremities: No lower extremity edema. No calf ttp L knee ttp along knee small effusion no warmth, small abrasion on patella, L ankle mild swelling over lateral malleolus - distal NV intact Neuro: Oriented X 3. No motor deficit. No sensory deficit. Course Course Course Narrative: normal xrays, offered rehab at this time the patient wants to go home with pain medicine MDM - Fall MDM Narrative Medical decision making narrative: 66 yo female with hx of DM, HTN, no oral anticoagulation therapy here with c/[place] - injuries to L knee and L ankle - at this time PO pain control and xrays of ankle and knee. Dispo per results and findings. Discharge Plan Discharge Clinical Impression: Sprain Contusion Qualifiers: Encounter type: initial encounter Contusion area: knee Laterality: left Qualified Code(s): S80.02XA - Contusion of left knee, initial encounter Patient Disposition: Home, Self-Care Instructions: Knee Sprain (ED), Bone Bruise (ED) Additional Instructions: le ofrecieron rehabilitaci?n aguda raul la rechazaron, si se va a casa y no puede caminar, regrese al departamento de emergencias radiograf?as normales Prescriptions: New cyclobenzaprine 10 mg tablet 10 mg PO TID PRN (Reason: muscle spasm) Qty: 14 0RF lidocaine 4 % adhesive patch,medicated 1 patch topical DAILY PRN (Reason: pain) Qty: 10 0RF Rx Instructions: may leave on for up to 12 hrs hydrocodone-acetaminophen 5-325 mg tablet 1 tab PO Q6H PRN (Reason: pain) Qty: 10 0RF Rx Instructions: partial fill okay; Partial Fill upon patient request. diclofenac sodium [Voltaren Arthritis Pain] 1 % gel 2 g topical QID Qty: 100 0RF Rx Instructions: apply to single elbow, wrist or hand; for hand includes palm/fingers/back of hand No Action oxycodone 5 mg tablet 5 mg PO Q4H PRN (Reason: pain) Qty: 10 0RF Rx Instructions: for 3 days prednisone 20 mg tablet 40 mg PO DAILY Qty: 10 0RF cyclobenzaprine 10 mg tablet 10 mg PO BID PRN (Reason: muscle spasm) Qty: 10 0RF amoxicillin-pot clavulanate [Augmentin] 875-125 mg tablet 1 tab PO BID 7 Days Qty: 14 0RF oaxyzeat-cbnbkhbzn-YU 3.5-10,000-1 mg/mL-unit/mL-% drops,suspension 4 drp otic (ear) left Q8H 10 Days Qty: 10 0RF oxycodone 5 mg tablet 5 mg PO Q8H PRN (Reason: pain) Qty: 5 0RF Rx Instructions: Patient may request fewer tablets than prescribed cyclobenzaprine 5 mg tablet 5 mg PO Q8H PRN (Reason: pain (scale score 7-10)) 5 Days Qty: 14 0RF acetaminophen [Tylenol Extra Strength] 500 mg tablet 500 mg PO Q6H PRN (Reason: pain or fever) Qty: 20 0RF lidocaine [Lidoderm] 5 % adhesive patch,medicated 1 patch topical DAILY MDD remove after 12 hours PRN (Reason: pain) Qty: 30 0RF Rx Instructions: leave on most painful area for up to 12 hrs tramadol 50 mg tablet 50 mg PO Q8H PRN (Reason: pain, severe) 3 Days Qty: 9 0RF Referrals: Physician,Unknown J [Primary Care Provider] - 3 days (PCP if not better) Print Language: Maltese
[2022-01-10] MEDS: Acetaminophen 325 MG TABLET 650 MG PO (00:35)
[2022-01-10] MEDS: oxyCODONE HCl Immed Release 5 MG TABLET PO (00:36)
[2022-01-10] MEDS: Ondansetron ODT 4 MG TAB.RAPDIS TRANSLINGU (00:36)
== END 2022-01-10 01:35 | disposition home or self-care (01) ==
PROVIDERS: Emergency Provider Emergency Medicine
DX: S80.02XA Contusion of left knee, initial encounter (principal); I10 Essential (primary) hypertension; M79.605 Pain in left leg; W19.XXXA Unspecified fall, initial encounter; Y93.9 Activity, unspecified; Y92.828 Other wilderness area as the place of occurrence of the external cause; Y99.8 Other external cause status; Z79.899 Other long term (current) drug therapy
CPT/HCPCS: 73564; 73610; 99283; 99284

== ENCOUNTER 2022-06-13 14:01 | Emergency (ER) | payer MEDICARE, MEDICAID, SELFPAY ==
--- NOTE | ~2022-06-13 | XR_ITS ---
EXAMINATION: XR CHEST CLINICAL INFORMATION: Chest pain. Anterior chest pain COMPARISON: None TECHNIQUE: 2 views of the chest were obtained. FINDINGS: Lungs are clear. No focal consolidation or mass. Pulmonary vascularity is diffusely prominent and indistinct suggesting mild interstitial pulmonary edema. No pleural effusion or pneumothorax. Normal heart size. Degenerative changes of the shoulders and spine. XR/XR chest 2V IMPRESSION: Prominent pulmonary vascularity suggests mild interstitial pulmonary edema.
--- NOTE | 2022-06-13 14:19 | ED_ITS ---
HPI - Chest Pain General Chief Complaint: Upper Respiratory Symptoms <Anna Fuentes CNP - Last Filed: 06/13/22 14:29> Stated Complaint: chest pain <Anna Fuentes CNP - Last Filed: 06/13/22 14:29> Time Seen by Provider: 06/13/22 18:05 <Anna Fuentes CNP - Last Filed: 06/13/22 14:29> History of Present Illness HPI narrative: Patient complains of several days of fever, she believes it started 5 days ago and had cough got worse 3 days ago runny nose some blood-streaked sputum, frequent cough and some mild shortness of breath, she does have chest pain with the cough but no other chest pain She has a history of pulmonary embolus and takes Eliquis and is compliant with the medication <MIC Amin - Last Filed: 07/06/22 10:00> Related Data Home Medications: Previous Rx's Medication Instructions Recorded oxycodone 5 mg tablet 5 mg PO Q4H PRN pain #10 tabs 06/09/20 prednisone 20 mg tablet 40 mg PO DAILY #10 tabs 06/09/20 amoxicillin 875 mg-potassium 1 tab PO BID 7 days #14 tabs 02/04/21 clavulanate 125 mg tablet (Augmentin) cyclobenzaprine 10 mg tablet 10 mg PO BID PRN muscle spasm #10 02/04/21 tabs prmctitt-mknanwfxr-btwsstffn 3.5 4 drp otic (ear) left Q8H 10 days 02/04/21 mg-10,000 unit/mL-1 % ear #10 mL drops,susp oxycodone 5 mg tablet 5 mg PO Q8H PRN pain #5 tabs 02/04/21 acetaminophen 500 mg tablet 500 mg PO Q6H PRN pain or fever 10/16/21 (Tylenol Extra Strength) #20 tabs cyclobenzaprine 5 mg tablet 5 mg PO Q8H PRN pain (scale score 10/16/21 7-10) 5 days #14 tabs lidocaine 5 % topical patch 1 patch topical DAILY PRN pain #30 10/16/21 (Lidoderm) ea tramadol 50 mg tablet 50 mg PO Q8H PRN pain, severe 3 10/16/21 days #9 tabs cyclobenzaprine 10 mg tablet 10 mg PO TID PRN muscle spasm #14 01/10/22 tabs diclofenac sodium 1 % topical gel 2 g topical QID #100 grams 01/10/22 (Voltaren Arthritis Pain) hydrocodone 5 mg-acetaminophen 325 1 tab PO Q6H PRN pain #10 tabs 01/10/22 mg tablet lidocaine 4 % topical patch 1 patch topical DAILY PRN pain #10 01/10/22 ea hydrocodone 5 mg-acetaminophen 325 1 tab PO Q6H PRN Pain/cough #10 06/13/22 mg tablet tabs <Anna Fuentes CNP - Last Filed: 06/13/22 14:29> Allergies/Adverse Reactions: Allergies Allergy/AdvReac Type Severity Reaction Status Date / Time levofloxacin [From LEVAQUIN] Allergy Mild unknown Verified 02/04/21 19:25 Sulfa (Sulfonamide Allergy Unknown UNKNOWN Verified 02/04/21 19:25 Antibiotics) [SULFA (SULFONAMIDE ANTIBIOTICS)] sulfamethoxazole Allergy Unknown UNKNOWN Verified 02/04/21 19:25 [From SEPTRA] trimethoprim [From SEPTRA] Allergy Unknown UNKNOWN Verified 02/04/21 19:25 <Anna Fuentes CNP - Last Filed: 06/13/22 14:29> Review of Systems Review of Systems: Positive for cough fever runny nose sputum and mild shortness of breath negatives are no chills no dizziness no weakness no fainting no feeling faint no headache no stiff neck no sore throat no difficulty swallowing no chest pain no palpitations no sweating no abdominal pain no nausea vomiting or diarrhea no dysuria no skin rash no calf pain or swelling no leg swelling <MIC Amin - Last Filed: 07/06/22 10:00> Yes all other systems are reviewed and are negative <MIC Amin - Last Filed: 07/06/22 10:00> [facility] Past Medical History [facility] Narrative: Patient has history of PE and is compliant with anticoagulants <MIC Amin - Last Filed: 07/06/22 10:00> Source: nursing notes reviewed <MIC Amin - Last Filed: 07/06/22 10:00> Medical History: Medical History Asthma Diabetes HTN (hypertension) Neuropathy <Anna Calvert PETRA Fuentes - Last Filed: 06/13/22 14:29> Social History Social History: Social History (Updated 01/10/22 @ 00:30 by Afia Ryan DO) Patient Tobacco Use Status: Never used Tobacco <Anna FuentesPETRA - Last Filed: 06/13/22 14:29> Physical Exam Vital Signs: Vital Signs: Last Vital Signs Temp 99.1 F 06/13/22 20:20 Pulse 81 06/13/22 20:20 Resp 20 06/13/22 20:20 BP 116/63 06/13/22 20:20 Pulse Ox 94 06/13/22 20:20 O2 Del Method 06/13/22 20:20 BMI result Body Mass Index 32.2 <Anna MccrayPETRA banks - Last Filed: 06/13/22 14:29> Vital Signs: Last Vital Signs Temp 99.1 F 06/13/22 20:20 Pulse 81 06/13/22 20:20 Resp 20 06/13/22 20:20 BP 116/63 06/13/22 20:20 Pulse Ox 94 06/13/22 20:20 O2 Del Method 06/13/22 20:20 BMI result Body Mass Index 32.2 <MIC Amin - Last Filed: 07/06/22 10:00> General appearance is no acute distress, speaking full sentences breathing comfortably The eyes no redness or discharge The nose no sinus tenderness The pharynx no redness swelling or exudate, membranes are moist Neck is supple Chest clear to auscultation bilateral with full symmetric equal breath sounds no adventitious sounds Heart no murmur Abdomen soft nontender Extremities range of motion x4 without pedal edema There is no calf tenderness or swelling Skin no rashes <MIC Amin - Last Filed: 07/06/22 10:00> Course Course Course Narrative: RME: Patient is a 67-year-old female with a past medical history of asthma, diabetes, hypertension, neuropathy, pulmonary embolism for which she is prescribed Eliquis, presents to the emergency department for evaluation of productive cough yellow phlegm, blood-tinged, nasal congestion, shortness of breath, chest pain, fever T-max 100.2. Symptom onset [address] chest been vaccinated for COVID-19, has not received vaccination for influenza. Plan: Labs, EKG, chest x-ray, COVID-19 testing, influenza testing. <Anna Fuentes CNP - Last Filed: 06/13/22 14:29> RME: Patient is a 67-year-old female with a past medical history of asthma, diabetes, hypertension, neuropathy, pulmonary embolism for which she is prescribed Eliquis, presents to the emergency department for evaluation of productive cough yellow phlegm, blood-tinged, nasal congestion, shortness of breath, chest pain, fever T-max 100.2. Symptom onset [address] chest been vaccinated for COVID-19, has not received vaccination for influenza. Plan: Labs, EKG, chest x-ray, COVID-19 testing, influenza testing. Patient with cough sputum some mild shortness of breath, pain in chest only with coughing EKG was done and did show a new right bundle branch block The rate was 97 normal sinus rhythm There were no acute ST or ischemic changes Chest x-ray showed possible mild interstitial edema, no pneumonia, BNP was 19, normal, lung exam was normal without crackles or rales Chemistry and CBC did not demonstrate any emergent findings Serology testing was positive for COVID If discussion with the patient about paxlovid treatment, as she is taking Eliquis I did not write this medication but did advise her to call her button maker or primary doctor to discuss whether modification of Eliquis was warranted Patient was stable breathing comfortably in no acute distress and was discharged home <MIC Amin - Last Filed: 07/06/22 10:00> Medications Administered Discontinued Medications Generic Name Dose Route Start Last Admin Trade Name Freq PRN Reason Stop Dose Admin Acetaminophen 650 mg 06/13/22 18:04 06/13/22 18:10 Acetaminophen 325 Mg Tablet PO 06/13/22 18:05 650 mg ONCE ONE Administration Oxycodone HCl 5 mg 06/13/22 21:31 06/13/22 21:42 Oxycodone Hcl Immed Release 5 Mg Tablet PO 06/13/22 21:32 5 mg ONCE ONE Administration <Anna Fuentes CNP - Last Filed: 06/13/22 14:29> Medications Administered Discontinued Medications Generic Name Dose Route Start Last Admin Trade Name Freq PRN Reason Stop Dose Admin Acetaminophen 650 mg 06/13/22 18:04 06/13/22 18:10 Acetaminophen 325 Mg Tablet PO 06/13/22 18:05 650 mg ONCE ONE Administration Oxycodone HCl 5 mg 06/13/22 21:31 06/13/22 21:42 Oxycodone Hcl Immed Release 5 Mg Tablet PO 06/13/22 21:32 5 mg ONCE ONE Administration <MIC Amin - Last Filed: 07/06/22 10:00> Medical Decision Making Lab Data [facility] Lab Attestation statement: I reviewed the patient's lab results. <MIC Amin - Last Filed: 07/06/22 10:00> Result Diagrams: 06/13/22 15:35 06/13/22 15:35 <Anna Fuentes CNP - Last Filed: 06/13/22 14:29> Labs: Lab Results 06/13/22 06/13/22 06/13/22 Range/Units 15:35 15:35 15:35 WBC 12.6 H (4.8-10.8) X10*3/uL RBC 4.93 (4.20-5.50) X10*6/uL Hgb 12.9 (12.0-16.0) g/dl Hct 40.5 (37.0-47.0) % MCV 82.2 (80.0-98.0) fL MCH 26.2 L (27.0-33.0) pg MCHC 31.9 (31.0-35.0) g/dl RDW 13.8 (11.0-16.0) % Plt Count 311 (160-400) X10*3/uL MPV 11.3 (9.4-12.3) fL Immature Gran % (Auto) 0.9 H (0.0-0.4) % Neut % (Auto) 65.1 (45-73) % Lymph % (Auto) 22.2 (20-40) % Ballard % (Auto) 10.0 (2-11) % Eos % (Auto) 1.2 (0-4) % Baso % (Auto) 0.6 (0-2) % Lymph # (Auto) 2.8 (1.2-4.9) X10*3/uL Ballard # (Auto) 1.3 H (0.1-1.2) X10*3/uL Eos # (Auto) 0.2 (0.0-0.4) X10*3/uL Baso # (Auto) 0.1 (0.0-0.2) X10*3/uL Abs Immat Gran (auto) 0.11 H (0.00-0.03) X10*3/uL Absolute Neuts (auto) 8.2 (2.0-8.3) x10*3/uL Absolute Nucleated RBC 0.000 (0.0-0.012) X10*3/uL Nucleated RBC % (auto) 0.0 (0.0-0.2) /100WBC Sodium 142 (135-145) mmol/L Potassium 4.2 (3.3-5.1) mmol/L Chloride 104 (96-108) mmol/L Carbon Dioxide 26 (22-29) mmol/L Anion Gap 16 (12-20) BUN 16 (9-16) mg/dL Creatinine 0.84 (0.5-1.4) mg/dL Estim Creat Clear Calc 70.5 Estimated GFR > 60 Random Glucose 116 H (60-115) mg/dL Calcium 10.2 (8.4-10.2) mg/dL Magnesium 1.5 L (1.6-2.6) mg/dL Total Bilirubin 0.3 (0.0-1.0) mg/dL AST 13 (5-31) U/L ALT 16 (0-31) U/L Alkaline Phosphatase 63 (39-117) U/L Troponin I High Sens < 3.5 (<3.5-17.0) ng/L B-Natriuretic Peptide (<100) pg/mL Total Protein 7.5 (6.5-8.0) g/dL Albumin 4.3 (3.5-5.0) g/dL Lipase 62 (8-78) U/L COVID-19 (ANTONIO) (Negative) COVID-19 Clin Com Influenza Type A (FRANCIS) (Negative) Influenza Type B (FRANCIS) (Negative) Influenza A & B Note 06/13/22 06/13/22 06/13/22 Range/Units 15:35 15:35 15:35 WBC (4.8-10.8) X10*3/uL RBC (4.20-5.50) X10*6/uL Hgb (12.0-16.0) g/dl Hct (37.0-47.0) % MCV (80.0-98.0) fL MCH (27.0-33.0) pg MCHC (31.0-35.0) g/dl RDW (11.0-16.0) % Plt Count (160-400) X10*3/uL MPV (9.4-12.3) fL Immature Gran % (Auto) (0.0-0.4) % Neut % (Auto) (45-73) % Lymph % (Auto) (20-40) % Ballard % (Auto) (2-11) % Eos % (Auto) (0-4) % Baso % (Auto) (0-2) % Lymph # (Auto) (1.2-4.9) X10*3/uL Ballard # (Auto) (0.1-1.2) X10*3/uL Eos # (Auto) (0.0-0.4) X10*3/uL Baso # (Auto) (0.0-0.2) X10*3/uL Abs Immat Gran (auto) (0.00-0.03) X10*3/uL Absolute Neuts (auto) (2.0-8.3) x10*3/uL Absolute Nucleated RBC (0.0-0.012) X10*3/uL Nucleated RBC % (auto) (0.0-0.2) /100WBC Sodium (135-145) mmol/L Potassium (3.3-5.1) mmol/L Chloride (96-108) mmol/L Carbon Dioxide (22-29) mmol/L Anion Gap (12-20) BUN (9-16) mg/dL Creatinine (0.5-1.4) mg/dL Estim Creat Clear Calc Estimated GFR Random Glucose (60-115) mg/dL Calcium (8.4-10.2) mg/dL Magnesium (1.6-2.6) mg/dL Total Bilirubin (0.0-1.0) mg/dL AST (5-31) U/L ALT (0-31) U/L Alkaline Phosphatase (39-117) U/L Troponin I High Sens (<3.5-17.0) ng/L B-Natriuretic Peptide 19 (<100) pg/mL Total Protein (6.5-8.0) g/dL Albumin (3.5-5.0) g/dL Lipase (8-78) U/L COVID-19 (ANTONIO) Positive A (Negative) COVID-19 Clin Com See Note Influenza Type A (FRANCIS) Negative (Negative) Influenza Type B (FRANCIS) Negative (Negative) Influenza A & B Note See Note <Anna Fuentes, [employer] ENGINE PERFORMANCE ENGINEER - Last Filed: 06/13/22 14:29> Lab Results 06/13/22 06/13/22 06/13/22 Range/Units 15:35 15:35 15:35 WBC 12.6 H (4.8-10.8) X10*3/uL RBC 4.93 (4.20-5.50) X10*6/uL Hgb 12.9 (12.0-16.0) g/dl Hct 40.5 (37.0-47.0) % MCV 82.2 (80.0-98.0) fL MCH 26.2 L (27.0-33.0) pg MCHC 31.9 (31.0-35.0) g/dl RDW 13.8 (11.0-16.0) % Plt Count 311 (160-400) X10*3/uL MPV 11.3 (9.4-12.3) fL Immature Gran % (Auto) 0.9 H (0.0-0.4) % Neut % (Auto) 65.1 (45-73) % Lymph % (Auto) 22.2 (20-40) % Ballard % (Auto) 10.0 (2-11) % Eos % (Auto) 1.2 (0-4) % Baso % (Auto) 0.6 (0-2) % Lymph # (Auto) 2.8 (1.2-4.9) X10*3/uL Ballard # (Auto) 1.3 H (0.1-1.2) X10*3/uL Eos # (Auto) 0.2 (0.0-0.4) X10*3/uL Baso # (Auto) 0.1 (0.0-0.2) X10*3/uL Abs Immat Gran (auto) 0.11 H (0.00-0.03) X10*3/uL Absolute Neuts (auto) 8.2 (2.0-8.3) x10*3/uL Absolute Nucleated RBC 0.000 (0.0-0.012) X10*3/uL Nucleated RBC % (auto) 0.0 (0.0-0.2) /100WBC Sodium 142 (135-145) mmol/L Potassium 4.2 (3.3-5.1) mmol/L Chloride 104 (96-108) mmol/L Carbon Dioxide 26 (22-29) mmol/L Anion Gap 16 (12-20) BUN 16 (9-16) mg/dL Creatinine 0.84 (0.5-1.4) mg/dL Estim Creat Clear Calc 70.5 Estimated GFR > 60 Random Glucose 116 H (60-115) mg/dL Calcium 10.2 (8.4-10.2) mg/dL Magnesium 1.5 L (1.6-2.6) mg/dL Total Bilirubin 0.3 (0.0-1.0) mg/dL AST 13 (5-31) U/L ALT 16 (0-31) U/L Alkaline Phosphatase 63 (39-117) U/L Troponin I High Sens < 3.5 (<3.5-17.0) ng/L B-Natriuretic Peptide (<100) pg/mL Total Protein 7.5 (6.5-8.0) g/dL Albumin 4.3 (3.5-5.0) g/dL Lipase 62 (8-78) U/L COVID-19 (ANTONIO) (Negative) COVID-19 Clin Com Influenza Type A (FRANCIS) (Negative) Influenza Type B (FRANCIS) (Negative) Influenza A & B Note 06/13/22 06/13/22 06/13/22 Range/Units 15:35 15:35 15:35 WBC (4.8-10.8) X10*3/uL RBC (4.20-5.50) X10*6/uL Hgb (12.0-16.0) g/dl Hct (37.0-47.0) % MCV (80.0-98.0) fL MCH (27.0-33.0) pg MCHC (31.0-35.0) g/dl RDW (11.0-16.0) % Plt Count (160-400) X10*3/uL MPV (9.4-12.3) fL Immature Gran % (Auto) (0.0-0.4) % Neut % (Auto) (45-73) % Lymph % (Auto) (20-40) % Ballard % (Auto) (2-11) % Eos % (Auto) (0-4) % Baso % (Auto) (0-2) % Lymph # (Auto) (1.2-4.9) X10*3/uL Ballard # (Auto) (0.1-1.2) X10*3/uL Eos # (Auto) (0.0-0.4) X10*3/uL Baso # (Auto) (0.0-0.2) X10*3/uL Abs Immat Gran (auto) (0.00-0.03) X10*3/uL Absolute Neuts (auto) (2.0-8.3) x10*3/uL Absolute Nucleated RBC (0.0-0.012) X10*3/uL Nucleated RBC % (auto) (0.0-0.2) /100WBC Sodium (135-145) mmol/L Potassium (3.3-5.1) mmol/L Chloride (96-108) mmol/L Carbon Dioxide (22-29) mmol/L Anion Gap (12-20) BUN (9-16) mg/dL Creatinine (0.5-1.4) mg/dL Estim Creat Clear Calc Estimated GFR Random Glucose (60-115) mg/dL Calcium (8.4-10.2) mg/dL Magnesium (1.6-2.6) mg/dL Total Bilirubin (0.0-1.0) mg/dL AST (5-31) U/L ALT (0-31) U/L Alkaline Phosphatase (39-117) U/L Troponin I High Sens (<3.5-17.0) ng/L B-Natriuretic Peptide 19 (<100) pg/mL Total Protein (6.5-8.0) g/dL Albumin (3.5-5.0) g/dL Lipase (8-78) U/L COVID-19 (ANTONIO) Positive A (Negative) COVID-19 Clin Com See Note Influenza Type A (FRANCIS) Negative (Negative) Influenza Type B (FRANCIS) Negative (Negative) Influenza A & B Note See Note <MIC Amin - Last Filed: 07/06/22 10:00> Discharge Plan Discharge Clinical Impression: COVID-19 <Anna Fuentes CNP - Last Filed: 06/13/22 14:29> Patient Disposition: Home, Self-Care <Anna Fuentes CNP - Last Filed: 06/13/22 14:29> Additional Instructions: You have COVID , this is causing her symptoms of cough and some shortness of breath and fever I could not prescribe the medicine for COVID Paxlovid because of possible interaction with your Eliquis You should call your doctor or Radiation Physicist tomorrow morning to see if he wants to provide Paxlovid and change your dosing of the Eliquis so you can be treated for COVID [facility] has a COVID Treatment Center that may provide monoclonal antibodies, the phone number is [phone], you can call them tomorrow morning to see if you can get treatment to reduce risk of COVID infection Return to the ER any time any worse condition or any concerns <Anna Fuentes CNP - Last Filed: 06/13/22 14:29> Prescriptions: New hydrocodone-acetaminophen 5-325 mg tablet 1 tab PO Q6H PRN (Reason: Pain/cough) Qty: 10 0RF Rx Instructions: Partial Fill upon patient request. No Action oxycodone 5 mg tablet 5 mg PO Q4H PRN (Reason: pain) Qty: 10 0RF Rx Instructions: for 3 days prednisone 20 mg tablet 40 mg PO DAILY Qty: 10 0RF cyclobenzaprine 10 mg tablet 10 mg PO BID PRN (Reason: muscle spasm) Qty: 10 0RF amoxicillin-pot clavulanate [Augmentin] 875-125 mg tablet 1 tab PO BID 7 Days Qty: 14 0RF xtmcijpc-nmbjblkbr-TS 3.5-10,000-1 mg/mL-unit/mL-% drops,suspension 4 drp otic (ear) left Q8H 10 Days Qty: 10 0RF oxycodone 5 mg tablet 5 mg PO Q8H PRN (Reason: pain) Qty: 5 0RF Rx Instructions: Patient may request fewer tablets than prescribed cyclobenzaprine 5 mg tablet 5 mg PO Q8H PRN (Reason: pain (scale score 7-10)) 5 Days Qty: 14 0RF acetaminophen [Tylenol Extra Strength] 500 mg tablet 500 mg PO Q6H PRN (Reason: pain or fever) Qty: 20 0RF lidocaine [Lidoderm] 5 % adhesive patch,medicated 1 patch topical DAILY MDD remove after 12 hours PRN (Reason: pain) Qty: 30 0RF Rx Instructions: leave on most painful area for up to 12 hrs tramadol 50 mg tablet 50 mg PO Q8H PRN (Reason: pain, severe) 3 Days Qty: 9 0RF cyclobenzaprine 10 mg tablet 10 mg PO TID PRN (Reason: muscle spasm) Qty: 14 0RF lidocaine 4 % adhesive patch,medicated 1 patch topical DAILY PRN (Reason: pain) Qty: 10 0RF Rx Instructions: may leave on for up to 12 hrs hydrocodone-acetaminophen 5-325 mg tablet 1 tab PO Q6H PRN (Reason: pain) Qty: 10 0RF Rx Instructions: partial fill okay; Partial Fill upon patient request. diclofenac sodium [Voltaren Arthritis Pain] 1 % gel 2 g topical QID Qty: 100 0RF Rx Instructions: apply to single elbow, wrist or hand; for hand includes palm/fingers/back of hand <Anna Fuentes CNP - Last Filed: 06/13/22 14:29> Interventions: ED Discharge Assessment Last Done: 06/13/22 21:49 <Anna Fuentes CNP - Last Filed: 06/13/22 14:29> Discharge Date/Time: 06/13/22 21:49 <Anna Fuentes CNP - Last Filed: 06/13/22 14:29>
[2022-06-13 14:25] VITALS: BP 135/57; PULSE 101; RESP 20; TEMP 37.3; O2SAT 97; BMI 32.2
--- NOTE | 2022-06-13 14:26 | ECG_ITS ---
Test Reason : sob Blood Pressure : / mmHG Vent. Rate : 097 BPM Atrial Rate : 097 BPM P-R Int : 124 ms QRS Dur : 128 ms QT Int : 366 ms P-R-T Axes : 043 038 032 degrees QTc Int : 464 ms Normal sinus rhythm Right bundle branch block Abnormal ECG When compared with ECG of 29-DEC-2020 15:30, Right bundle branch block is now Present Referred By: Anna Fuentes Electronically Signed By:Pedro Pablo Mccurdy
[2022-06-13 15:56] LABS: MANUAL DIFF FLAG NO
[2022-06-13 15:57] LABS: Basophils Absolute Auto 0.1 X10*3/uL (0.0-0.2); Basophils Percent Auto 0.6 % (0-2); Eosinophils Absolute Auto 0.2 X10*3/uL (0.0-0.4); Eosinophils Percent Auto 1.2 % (0-4); Hematocrit 40.5 % (37.0-47.0); Hemoglobin 12.9 g/dl (12.0-16.0); Imm Gran Abs Auto 0.11 X10*3/uL (0.00-0.03); Imm Gran Pct Auto 0.9 % (0.0-0.4); Lymphocytes Absolute Auto 2.8 X10*3/uL (1.2-4.9); Lymphocytes Percent Auto 22.2 % (20-40); Mean Corpuscular HGB Conc 31.9 g/dl (31.0-35.0); Mean Corpuscular Hemoglobin 26.2 pg (27.0-33.0); Mean Corpuscular Volume 82.2 fL (80.0-98.0); Mean Platelet Volume 11.3 fL (9.4-12.3); Monocytes Absolute Auto 1.3 X10*3/uL (0.1-1.2); Neutrophils Absolute Auto 8.2 x10*3/uL (2.0-8.3); Neutrophils Percent Auto 65.1 % (45-73); Platelet Count 311 X10*3/uL (160-400); Red Blood Count 4.93 X10*6/uL (4.20-5.50); Red Cell Distribution Width 13.8 % (11.0-16.0); White Blood Count 12.6 X10*3/uL (4.8-10.8)
[2022-06-13 16:10] LABS: COVID-19 Test Positive (Negative); IDNOW Serial# 16C4AD1C
[2022-06-13 16:21] LABS: Alanine Aminotransferase 16 U/L (0-31); Albumin Level 4.3 g/dL (3.5-5.0); Alkaline Phosphatase 63 U/L (39-117); Anion Gap 16 (12-20); Aspartate Amino Transferase 13 U/L (5-31); Bilirubin Total 0.3 mg/dL (0.0-1.0); Blood Urea Nitrogen 16 mg/dL (9-16); Calcium 10.2 mg/dL (8.4-10.2); Carbon Dioxide 26 mmol/L (22-29); Chloride 104 mmol/L (96-108); Creatinine Clr Calc Pharmacy 70.5; Estimated Glomerular Filt Rate > 60; Glucose Random 116 mg/dL (60-115); Lipase 62 U/L (8-78); Magnesium 1.5 mg/dL (1.6-2.6); Potassium 4.2 mmol/L (3.3-5.1); Sodium 142 mmol/L (135-145); Total Protein 7.5 g/dL (6.5-8.0)
[2022-06-13 16:32] LABS: B Type Natriuretic Peptide 19 pg/mL (<100); IDNOW Serial# BCCEAD1C; Influenza A Negative (Negative); Influenza B2 Negative (Negative)
[2022-06-13 16:37] LABS: Troponin-I High Sensitivity < 3.5 ng/L (<3.5-17.0)
[2022-06-13 18:02] VITALS: BP 142/80; PULSE 107; RESP 16; TEMP 38; O2SAT 108
[2022-06-13] MEDS: Acetaminophen 325 MG TABLET 650 MG PO (18:10)
[2022-06-13 20:20] VITALS: BP 116/63; PULSE 81; RESP 20; TEMP 37.3; O2SAT 94
[2022-06-13] MEDS: oxyCODONE HCl Immed Release 5 MG TABLET PO (21:42)
== END 2022-06-13 21:49 | disposition home or self-care (01) ==
PROVIDERS: Nurse Practitioner Family; Emergency Provider Emergency Medicine
DX: U07.1 COVID-19 (principal); R07.89 Other chest pain; R50.9 Fever, unspecified; R05.9 Cough, unspecified; R06.02 Shortness of breath; Z79.899 Other long term (current) drug therapy
CPT/HCPCS: 71046; 80053; 83690; 83735; 83880; 84484; 85025; 87502; 87635; 93005; 99283; 99284

== ENCOUNTER 2023-10-25 19:03 | Emergency (ER) | payer OTHER, SELFPAY ==
--- NOTE | ~2023-10-25 | XR_ITS ---
EXAMINATION: XR CHEST 2 VIEWS CLINICAL INFORMATION: Chest pain. COMPARISON: Chest radiographs dated 06/13/2022. TECHNIQUE: Frontal and lateral views of the chest were obtained. FINDINGS: The heart, great vessels, pulmonary vasculature and mediastinum are normal. The lungs show no focal infiltrate, effusion or pneumothorax. There is no acute osseous abnormality. XR/XR chest 2V IMPRESSION: No active cardiopulmonary disease.
[2023-10-25 19:51] VITALS: BP 113/83; PULSE 102; RESP 14; TEMP 37.1; O2SAT 99; BMI 35.5
--- NOTE | 2023-10-25 20:05 | ECG_ITS ---
Test Reason : SOB Blood Pressure : / mmHG Vent. Rate : 079 BPM Atrial Rate : 079 BPM P-R Int : 130 ms QRS Dur : 128 ms QT Int : 408 ms P-R-T Axes : 047 -13 020 degrees QTc Int : 467 ms Artifact in tracing Normal sinus rhythm Right bundle branch block Abnormal ECG When compared with ECG of 13-JUN-2022 15:22, No significant change was found Referred By: Olu Kohler Electronically Signed By:DARWIN VALDEZ
--- NOTE | 2023-10-25 20:05 | ED.GENADULT ---
HPI - General Adult General Chief complaint: General Medical Stated complaint: SOB, inhalers not working Time Seen by Provider: 10/26/23 04:00 Source: patient and family (Granddaughter in-law) Mode of arrival: ambulatory Limitations: language barrier (British speaking only, peanut butter maker used) History of Present Illness HPI narrative: 68-year-old female with history diabetes mellitus, hypertension, asthma, pulmonary embolism who presents emergency department for evaluation of shortness of breath, productive cough, exacerbation of her asthma, right sided back pain with right knee pain. The patient states she has been sick for approximately 1 week. She states she has a cough which is productive of thick green to creamy phlegm. She has had no blood in her sputum. She states that she is having chest pain which is worse with coughing in his feeling short of breath at rest and with exertion. The patient had a fever as high as 99.9 and she has had chills. She states that she has been using her albuterol inhaler with only minimal effect. She also complains of right-sided back pain with pain radiating down her right leg to her knee. She also states that her right knee feels swollen. Patient does have a history of sciatica and she states that her symptoms feel similar to her sciatica Related Data Previous Rx's ?Medication ?Instructions ?Recorded oxycodone 5 mg tablet 5 mg PO Q4H PRN pain #10 tabs 06/09/20 prednisone 20 mg tablet 40 mg (2 x 20 mg) PO DAILY #10 tabs 06/09/20 amoxicillin 875 mg-potassium 1 tab PO BID 7 days #14 tabs 02/04/21 clavulanate 125 mg tablet (Augmentin) cyclobenzaprine 10 mg tablet 10 mg PO BID PRN muscle spasm #10 02/04/21 tabs tzavgneb-[id number]-ikydvbvdy 3.5 4 drp otic (ear) left Q8H 10 days 02/04/21 mg-10,000 unit/mL-1 % ear #10 mL drops,susp oxycodone 5 mg tablet 5 mg PO Q8H PRN pain #5 tabs 02/04/21 acetaminophen 500 mg tablet 500 mg PO Q6H PRN pain or fever 10/16/21 (Tylenol Extra Strength) #20 tabs cyclobenzaprine 5 mg tablet 5 mg PO Q8H PRN pain (scale score 10/16/21 7-10) 5 days #14 tabs lidocaine 5 % topical patch 1 patch topical DAILY PRN pain #30 10/16/21 (Lidoderm) ea tramadol 50 mg tablet 50 mg PO Q8H PRN pain, severe 3 10/16/21 days #9 tabs cyclobenzaprine 10 mg tablet 10 mg PO TID PRN muscle spasm #14 01/10/22 tabs diclofenac sodium 1 % topical gel 2 g topical QID #100 grams 01/10/22 (Voltaren Arthritis Pain) hydrocodone 5 mg-acetaminophen 325 1 tab PO Q6H PRN pain #10 tabs 01/10/22 mg tablet lidocaine 4 % topical patch 1 patch topical DAILY PRN pain #10 01/10/22 ea hydrocodone 5 mg-acetaminophen 325 1 tab PO Q6H PRN Pain/cough #10 06/13/22 mg tablet tabs albuterol sulfate 2.5 mg/3 mL 2.5 mg (3 mL) inhalation Q4-6H PRN 10/26/23 (0.083 %) solution for nebulization shortness of breath or wheezing #75 mL doxycycline hyclate 100 mg tablet 100 mg PO Q12H 7 days #14 tabs 10/26/23 prednisone 20 mg tablet 60 mg (3 x 20 mg) PO DAILY 5 days 10/26/23 #15 tabs Allergies Allergy/AdvReac Type Severity Reaction Status Date / Time levofloxacin [From LEVAQUIN] Allergy Mild unknown Verified 10/25/23 20:02 Sulfa (Sulfonamide Allergy Unknown UNKNOWN Verified 10/25/23 20:02 Antibiotics) [SULFA (SULFONAMIDE ANTIBIOTICS)] sulfamethoxazole Allergy Unknown UNKNOWN Verified 10/25/23 20:02 [From SEPTRA] trimethoprim [From SEPTRA] Allergy Unknown UNKNOWN Verified 10/25/23 20:02 Review of Systems Review of Systems: Yes all other systems are reviewed and are negative [facility] Past Medical History [facility] Narrative: She denies tobacco, alcohol and drug use. Medical History Asthma Diabetes HTN (hypertension) Neuropathy Social History Social History (Updated 01/10/22 @ 00:30 by Afia Ryan DO) Patient Tobacco Use Status: Never used Tobacco Smoked in Last 30 Days: No Use of substances other than those prescribed or required for medical reasons: No Advance Directives: No Advance Directives Information Provided: No Do you have a plan to hurt others: No Plan Physical Exam ED Vital Signs: Vital Signs - 24 hr 10/25/23 19:51 10/26/23 03:03 10/26/23 05:39 Temperature 98.8 F 98.0 F 98.2 F Pulse Rate 102 H 75 75 Respiratory Rate 14 17 18 Blood Pressure 113/83 122/67 123/63 Pulse Oximetry 99 95 95 Oxygen Delivery Method Room Air Room Air Room Air BMI result Body Mass Index 35.5 Vital signs revealed an elevated respiratory rate of 14, elevated heart rate of 102 Exam: General: Awake, alert in no distress, elevated BMI of 35.5. Head: Normocephalic, atraumatic EENT: PERRL, Lids normal, sclera normal, conjunctiva normal, nose normal , ears normal, throat without erythema or exudates Neck: Supple, no adenopathy Lung: breath sounds symmetric, diffuse wheezing at end of expiration, with no, rales and no rhonchi Chest: symmetric movement, nontender Heart: regular rate and rhythm, normal S1, S2 no murmurs or rubs Abdomen: soft, non-tender, nondistended, normal bowel sounds Back: Patient does have tenderness palpation of the paraspinal muscles in her right lumbar sacral region with no spasm. She has negative straight leg raises on the left but a positive straight leg raise on the right Extremities: no deformities, patient has pain with bending of her right knee, her right knee does appear to be slightly larger than the left with no clear joint effusion. Neuro: Awake, alert, oriented, normal speech, cranial nerves intact, moves all extremities symmetrically Psych: Pleasant, cooperative Course Course Course Narrative: RME- 68-year-old female presents for evaluation of shortness of breath and coughing. She reports no improvement with inhalers. Plan for labs, viral swabs and chest x-ray Medications Administered Discontinued Medications Generic Name Dose Route Start Last Admin Trade Name Freq PRN Reason Stop Dose Admin Doxycycline Monohydrate 100 mg 10/26/23 05:24 10/26/23 05:37 Doxycycline Monohydrate 100 Mg Capsule PO 10/26/23 05:25 100 mg ONCE ONE Administration Prednisone 60 mg 10/26/23 05:24 10/26/23 05:36 Prednisone 20 Mg Tablet PO 10/26/23 05:25 60 mg ONCE ONE Administration Medical Decision Making Medical Decision Making [facility] Narrative: 68-year-old female with history diabetes mellitus, hypertension, asthma, pulmonary embolism who presents emergency department for evaluation of shortness of breath, productive cough, exacerbation of her asthma, right sided back pain with right knee pain x 1 week. Patient did have fever of 99.9 degrees at home and had chills. Patient also has history of sciatica and is experiencing pain in her right back radiating down her right leg, she is also having right knee pain. Vital signs did reveal an elevated blood pressure and elevated respiratory rate. Lung exam did reveal diffuse wheezing with no rales or rhonchi. Patient does have a positive right straight leg raise on the right but not on the left. Also has some swelling of her right knee joint with no clear joint effusion. Differential diagnosis: ?Includes but is not limited to pneumonia, bronchitis, asthma exacerbation, right back strain, right sciatica, right knee arthritis Following evaluation was ordered: CBC, CMP, urinalysis Patient was initially treated with the following: Doxycycline 100 mg orally, prednisone 40 mg orally Course: 05:14 My interpretation patient's laboratory evaluation as follows: CBC was normal. CMP was normal. COVID-19, influenza and RSV were negative. Patient's two view chest x-ray revealed no acute findings no evidence of pneumonia. Patient most likely has acute bronchitis causing a flare-up of her asthma. Patient was started on doxycycline 100 mg q.12 hours x7 days given her 1st dose here in the emergency department. She was also started on prednisone 60 mg once a day for 5 days and given her 1st dose here in the emergency department. Patient's sciatica may benefit from this course of prednisone as well and she was advised to take Tylenol 1000 mg 3 times a day as needed for pain. Patient does have a nebulizer at home and she was given a prescription for albuterol 2.5 mg/3 mL nebulizer solution every 4-6 hours as needed for shortness of breath. She was given printed and verbal instructions discharged home. Admission/Observation Consideration of admission/observation: Escalation of care including admission/observation considered Lab Data [facility] Lab Attestation statement: I reviewed the patient's lab results. 10/25/23 20:18 10/25/23 20:18 Labs: Lab Results 10/25/23 Range/Units 20:18 WBC 11.1 H (4.8-10.8) X10*3/uL RBC 4.82 (4.20-5.50) X10*6/uL Hgb 13.3 (12.0-16.0) g/dl Hct 39.9 (37.0-47.0) % MCV 82.8 (80.0-98.0) fL MCH 27.6 (27.0-33.0) pg MCHC 33.3 (31.0-35.0) g/dl RDW 13.5 (11.0-16.0) % Plt Count 337 (160-400) X10*3/uL MPV 10.7 (9.4-12.3) fL Immature Gran % (Auto) 1.0 H (0.0-0.4) % Neut % (Auto) 56.6 (45-73) % Lymph % (Auto) 30.0 (20-40) % [place] % (Auto) 7.6 (2-11) % Eos % (Auto) 3.9 (0-4) % Baso % (Auto) 0.9 (0-2) % Lymph # (Auto) 3.3 (1.2-4.9) X10*3/uL [place] # (Auto) 0.9 (0.1-1.2) X10*3/uL Eos # (Auto) 0.4 (0.0-0.4) X10*3/uL Baso # (Auto) 0.1 (0.0-0.2) X10*3/uL Abs Immat Gran (auto) 0.11 H (0.00-0.03) X10*3/uL Absolute Neuts (auto) 6.3 (2.0-8.3) x10*3/uL Absolute Nucleated RBC 0.000 (0.0-0.012) X10*3/uL Nucleated RBC % (auto) 0.0 (0.0-0.2) /100WBC Sodium 143 (135-145) mmol/L Potassium 3.5 (3.3-5.1) mmol/L Chloride 103 (96-108) mmol/L Carbon Dioxide 23 (22-29) mmol/L Anion Gap 21 H (12-20) BUN 13 (9-16) mg/dL Creatinine 0.83 (0.5-1.4) mg/dL Estim Creat Clear Calc 68.7 Estimated GFR > 60 Random Glucose 105 (60-115) mg/dL Calcium 10.6 H (8.4-10.2) mg/dL Total Bilirubin 0.2 (0.0-1.0) mg/dL AST 20 (5-31) U/L ALT 17 (0-31) U/L Alkaline Phosphatase 61 (39-117) U/L Total Protein 8.2 H (6.5-8.0) g/dL Albumin 4.1 (3.5-5.0) g/dL Lipase 32 (8-78) U/L Influenza Type A (PCR) NEGATIVE (Negative) Influenza Type B (PCR) NEGATIVE (Negative) RSV RNA Qual (PCR) NEGATIVE (Negative) SARS-CoV-2 RNA (RT-PCR) NEGATIVE (Negative) Independent Interpretation I performed an independent interpretation of an: EKG and Plain X-Ray Interpretation: My interpretation of the patient's two view chest x-ray is as follows: No acute disease My interpretation patient's 12 EKG is as follows: Normal sinus rhythm rate of 79, normal SC interval, prolonged QRS duration of 120 milliseconds, normal QTC interval, right bundle-branch block, no ST segment elevation, no ST segment depression, no PACs, no PVCs, when compared to EKG dated 06/06/2022 no significant change was found, right bundle-branch block was old Radiology Impression Discussion of test interpretation with radiology: I have reviewed the radiologist's reading. Radiologist Impression: XR chest 2V IMPRESSION: No active cardiopulmonary disease. Dictated By: Carlos Kenyon Independent Historian Clinical information obtained from an independent historian. History obtained from or confirmed by: Other (Granddaughter in-law) Prescription Management I considered prescription management with: Antibiotic and Other (Steroids-prednisone, nebulizer solution-albuterol) Chronic Conditions Patient?s care impacted by: Diabetes and Other (Asthma) Discharge Plan Discharge Clinical Impression: Asthma exacerbation, Acute bronchitis, Sciatica of right side, Acute pain of right knee Patient Disposition: Home, Self-Care Instructions: Asthma (ED), Sciatica (ED), Acute Bronchitis (ED) Additional Instructions: Your chest x-ray was unremarkable, there has no evidence for pneumonia. Your blood work was normal. Your COVID-19, influenza and RSV tests were negative. Your symptoms are consistent with bacterial bronchitis which is causing a flare-up of your asthma. Your right leg pain is most likely caused by arthritis of the right knee and a flare-up of your sciatica. Take prednisone 20 mg pills, 3 pills once a day for 5 days. While you ?are taking prednisone, do not take any NSAIDs (Motrin, Advil, ibuprofen, Aleve, naproxen). Take doxycycline 100 mg, 1 pill every 12 hours for 7 days Use the albuterol nebulizer solution every 6 hours as needed for shortness of breath. Take Tylenol (acetaminophen) 500 mg pills, 2 pills every 6 hours as needed for pain or fever. Follow-up with your doctor in 2 days. Please return to the emergency department if your symptoms get worse or if you develop any symptoms that are concerning to you. Prescriptions: New albuterol sulfate 2.5 mg /3 mL (0.083 %) solution for nebulization 2.5 mg inhalation Q4-6H PRN (Reason: shortness of breath or wheezing) Qty: 75 0RF prednisone 20 mg tablet 60 mg PO DAILY 5 Days Qty: 15 0RF doxycycline hyclate 100 mg tablet 100 mg PO Q12H 7 Days Qty: 14 0RF No Action oxycodone 5 mg tablet 5 mg PO Q4H PRN (Reason: pain) Qty: 10 0RF Rx Instructions: for 3 days prednisone 20 mg tablet 40 mg PO DAILY Qty: 10 0RF cyclobenzaprine 10 mg tablet 10 mg PO BID PRN (Reason: muscle spasm) Qty: 10 0RF amoxicillin-pot clavulanate [Augmentin] 875-125 mg tablet 1 tab PO BID 7 Days Qty: 14 0RF jhpvcxif-xmbansrmh-VG 3.5-10,000-1 mg/mL-unit/mL-% drops,suspension 4 drp otic (ear) left Q8H 10 Days Qty: 10 0RF oxycodone 5 mg tablet 5 mg PO Q8H PRN (Reason: pain) Qty: 5 0RF Rx Instructions: Patient may request fewer tablets than prescribed cyclobenzaprine 5 mg tablet 5 mg PO Q8H PRN (Reason: pain (scale score 7-10)) 5 Days Qty: 14 0RF acetaminophen [Tylenol Extra Strength] 500 mg tablet 500 mg PO Q6H PRN (Reason: pain or fever) Qty: 20 0RF lidocaine [Lidoderm] 5 % adhesive patch,medicated 1 patch topical DAILY MDD remove after 12 hours PRN (Reason: pain) Qty: 30 0RF Rx Instructions: leave on most painful area for up to 12 hrs tramadol 50 mg tablet 50 mg PO Q8H PRN (Reason: pain, severe) 3 Days Qty: 9 0RF cyclobenzaprine 10 mg tablet 10 mg PO TID PRN (Reason: muscle spasm) Qty: 14 0RF lidocaine 4 % adhesive patch,medicated 1 patch topical DAILY PRN (Reason: pain) Qty: 10 0RF Rx Instructions: may leave on for up to 12 hrs hydrocodone-acetaminophen 5-325 mg tablet 1 tab PO Q6H PRN (Reason: pain) Qty: 10 0RF Rx Instructions: partial fill okay; Partial Fill upon patient request. diclofenac sodium [Voltaren Arthritis Pain] 1 % gel 2 g topical QID Qty: 100 0RF Rx Instructions: apply to single elbow, wrist or hand; for hand includes palm/fingers/back of hand hydrocodone-acetaminophen 5-325 mg tablet 1 tab PO Q6H PRN (Reason: Pain/cough) Qty: 10 0RF Rx Instructions: Partial Fill upon patient request. Interventions: ED Discharge Assessment Last Done: 10/26/23 05:39 Discharge Date/Time: 10/26/23 05:41 Print Language: British
[2023-10-25 20:24] LABS: MANUAL DIFF FLAG NO
[2023-10-25 20:28] LABS: Basophils Absolute Auto 0.1 X10*3/uL (0.0-0.2); Basophils Percent Auto 0.9 % (0-2); Eosinophils Absolute Auto 0.4 X10*3/uL (0.0-0.4); Eosinophils Percent Auto 3.9 % (0-4); Hematocrit 39.9 % (37.0-47.0); Hemoglobin 13.3 g/dl (12.0-16.0); Imm Gran Abs Auto 0.11 X10*3/uL (0.00-0.03); Lymphocytes Absolute Auto 3.3 X10*3/uL (1.2-4.9); Mean Corpuscular HGB Conc 33.3 g/dl (31.0-35.0); Mean Corpuscular Hemoglobin 27.6 pg (27.0-33.0); Mean Corpuscular Volume 82.8 fL (80.0-98.0); Mean Platelet Volume 10.7 fL (9.4-12.3); Monocytes Absolute Auto 0.9 X10*3/uL (0.1-1.2); Monocytes Percent Auto 7.6 % (2-11); Neutrophils Absolute Auto 6.3 x10*3/uL (2.0-8.3); Neutrophils Percent Auto 56.6 % (45-73); Platelet Count 337 X10*3/uL (160-400); Red Blood Count 4.82 X10*6/uL (4.20-5.50); Red Cell Distribution Width 13.5 % (11.0-16.0); White Blood Count 11.1 X10*3/uL (4.8-10.8)
[2023-10-25 20:44] LABS: Alanine Aminotransferase 17 U/L (0-31); Albumin Level 4.1 g/dL (3.5-5.0); Alkaline Phosphatase 61 U/L (39-117); Anion Gap 21 (12-20); Aspartate Amino Transferase 20 U/L (5-31); Bilirubin Total 0.2 mg/dL (0.0-1.0); Blood Urea Nitrogen 13 mg/dL (9-16); Calcium 10.6 mg/dL (8.4-10.2); Carbon Dioxide 23 mmol/L (22-29); Chloride 103 mmol/L (96-108); Creatinine Clr Calc Pharmacy 68.7; Estimated Glomerular Filt Rate > 60; Glucose Random 105 mg/dL (60-115); Lipase 32 U/L (8-78); Potassium 3.5 mmol/L (3.3-5.1); Sodium 143 mmol/L (135-145); Total Protein 8.2 g/dL (6.5-8.0)
[2023-10-25 21:10] LABS: Influenza A PCR NEGATIVE (Negative); Influenza B PCR NEGATIVE (Negative); Resp Syncy Virus RNA Qual PCR NEGATIVE (Negative); SARS COV2 PCR INHOUSE NEGATIVE (Negative)
[2023-10-26 03:03] VITALS: BP 122/67; PULSE 75; RESP 17; TEMP 36.7; O2SAT 95
[2023-10-26] MEDS: predniSONE 20 MG TABLET 60 MG PO (05:36)
[2023-10-26] MEDS: Doxycycline Monohydrate 100 MG CAPSULE PO (05:37)
[2023-10-26 05:39] VITALS: BP 123/63; PULSE 75; RESP 18; TEMP 36.8; O2SAT 95
== END 2023-10-26 05:41 | disposition home or self-care (01) ==
PROVIDERS: Physician Assistant; Emergency Provider Emergency Medicine Emergency Medical Services; PCP Registered Nurse
DX: J45.901 Unspecified asthma with (acute) exacerbation (principal); M54.41 Lumbago with sciatica, right side; J20.9 Acute bronchitis, unspecified; R06.02 Shortness of breath; R07.89 Other chest pain; M79.604 Pain in right leg; R05.9 Cough, unspecified; Z11.52 Encounter for screening for COVID-19; Z20.822 Contact with and (suspected) exposure to COVID-19; Z79.899 Other long term (current) drug therapy
CPT/HCPCS: 0241U; 36415; 71046; 80053; 83690; 85025; 93005; 99283; 99284

== ENCOUNTER → 2023-10-25 20:05 | Outpatient (BNV) | payer OTHER, SELFPAY | PROVIDERS: Emergency Provider Emergency Medicine Emergency Medical Services; PCP Registered Nurse; Visit Provider Internal Medicine | DX: R94.31 Abnormal electrocardiogram [ECG] [EKG] (principal) | CPT/HCPCS: 93010 ==